=== PATIENT | female | born 1950 | race Hispanic/Latino ===

== ENCOUNTER 2017-04-29 14:55 | Outpatient (CLI) | payer MEDICARE ==
[2017-04-29 15:44] LABS: Blood Urea Nitrogen 22 mg/dL (7-17)
--- NOTE | 2017-04-29 18:34 | Cat Scan Report ---
FINAL REPORT EXAM: CT ABDOMEN PELVIS W CON HISTORY: ABDOMINAL PAIN TECHNIQUE: Standard enhanced CT of the abdomen and pelvis. Delayed imaging through the kidneys and bladder were obtained. Coronal and sagittal reconstruction was also performed. Contrast: 100 mL Omnipaque 300 given IV. 450 cc Readi-Cat given as oral. PRIORS: None. FINDINGS: Within the abdomen, the liver demonstrates several tiny scattered rounded hypodensities measuring less than 5 mm. These are too small to characterize but statistically, likely represent cysts. The spleen, pancreas, adrenal glands, and kidneys are unremarkable. Gallbladder has been surgically removed. No evidence for retroperitoneal or pelvic lymphadenopathy is seen. The bowel loops have normal caliber. No fluid collection, inflammatory change, or free air is seen within the abdomen or pelvis. The appendix is not visualized. There are diverticuli noted throughout the colon but most significantly in the sigmoid region. However, no evidence for active diverticulitis is seen. Within the pelvis, the bladder demonstrates mild irregular wall thickening anteriorly. Although this may be due to suboptimal distention, possibility of cystitis or neoplasm should also be considered. The uterus has been removed. No evidence for mass or lymphadenopathy is seen in the pelvis. Images through the upper abdomen include the lung bases which are expanded and clear. Bony structures show no focal abnormalities. Degenerative disc changes are present throughout the spine. IMPRESSION: 1. No acute intra-abdominal process noted. 2. Extensive diverticulosis of the sigmoid colon with other diverticuli scattered throughout the colon. No evidence for acute diverticulitis is seen. 3. Mild irregular wall thickening of the bladder located anteriorly. This may be due to suboptimal distention, however, cystitis and neoplasm are not excluded. 4. Several tiny hypodensities scattered throughout the liver, too small to characterize. Statistically these likely represent cysts.
== END 2017-04-29 14:56 | disposition home or self-care (01) ==
LOC: CT 14:55
PROVIDERS: ATTEND Internal Medicine
DX: K57.30 Diverticulosis of large intestine without perforation or abscess without bleeding (principal); N32.89 Other specified disorders of bladder; K76.89 Other specified diseases of liver; M47.899 Other spondylosis, site unspecified; Z90.49 Acquired absence of other specified parts of digestive tract; Z90.710 Acquired absence of both cervix and uterus
CPT/HCPCS: 36415; 74177; 82565; 84520; Q9967